=== PATIENT | male | born 1935 | race Caucasian/White ===

== ENCOUNTER 2022-06-28 07:31 | Emergency (ER) | payer MEDICARE, BC, SELFPAY ==
[2022-06-28 07:31] VITALS: BP 121/57; PULSE 97; RESP 17; TEMP 36.8; O2SAT 96; BMI 26.4
--- NOTE | 2022-06-28 07:36 | XR_ITS ---
WS: [id number] PORTABLE CHEST HISTORY: chest pain COMPARISON: None available. Dual lead LEFT subclavian pacer/defibrillator. Prior CABG. Mild elevation of the RIGHT diaphragm. There is very mild interstitial thickening throughout both raf gs. No nodule or pneumonia. No pleural effusion or pneumothorax. Cardiac size: Normal. Mediastinum/Aorta: Mild atherosclerosis aorta. No osseous abnormality seen. XR/XR chest 1V portable [id number] IMPRESSION: 1. Mild atherosclerosis aorta. 2. Mild interstitial thickening. May be chronic or due to mild fluid overload. No pneumonia.
--- NOTE | 2022-06-28 07:36 | ECG_ITS ---
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 Measurements Intervals [place] Rate: 81 P: 128 TN: 166 QRS: -65 QRSD: 179 T: 115 QT: 387 QTc: 450 Interpretive Statements ELECTRONIC ATRIAL PACEMAKER ELECTRONIC VENTRICULAR PACEMAKER Frequent PVC's No previous ECG available for comparison Electronically Signed On 06-28-2022 16:34:17 CDT by Salina Hernandez M.D. [id number]
--- NOTE | 2022-06-28 07:42 | W.ED.CHESTPA ---
HPI - Chest Pain General: Chief Complaint: Chest Pain Stated Complaint: CHEST PAIN Time Seen by Provider: 06/28/22 07:36 Source: patient Mode of arrival: ambulatory Limitations: no limitations History of Present Illness: 86-year-old male presents emergency room complaining of chest discomfort shortness of breath and bradycardia that began around 2 AM this morning. Patient has AICD. He was told he is due for replacement in September. This morning is not feeling well and thought he was bradycardic called EMS EMS verbally reported a heart rate of 40s but they have no tracing of it. All the tracings they provided show 100% paced 70 and 80s ranges which consistent with what we are seeing when he arrives here. He was given aspirin and nitro in route and is currently symptom-free. MD complaint: chest discomfort Onset (ago): hour(s) Timing of current episode: episodic Onset: during rest Pain location: substernal Pain radiation: none Severity: mild Quality: aching and heaviness Relieving factors: nothing Exacerbating factors: nothing Associated symptoms: Deny abdominal pain, dyspnea, fever(s), nausea or vomiting Review of Systems Const: Denies: fever(s), chills, body aches, change in appetite, fatigue or malaise ENMT: Denies: throat pain, ear or mastoid pain, nasal discharge or nasal congestion Card: Denies: chest pain, edema, dyspnea on exertion or orthopnea Resp: Denies: dyspnea, productive cough or non-productive cough GI: Denies: abdominal pain, nausea, vomiting, hematemesis, coffee ground emesis, diarrhea, constipation, bloating, hematochezia or melena : Denies: flank pain, difficulty urinating, dysuria, urinary frequency or urinary urgency Skin/Breast: Denies: rash or pruritus PFS ED PFSH: Medical History Hypertension Ischemic cardiomyopathy Surgical History H/O mitral valve replacement with mechanical valve Social History Smoking and tobacco status: never smoked Alcohol intake: never Physical Exam Const: GENERAL APPEARANCE: cooperative and comfortable ORIENTATION/CONSCIOUSNESS: Yes awake, Yes oriented to person, Yes oriented to place and Yes oriented to time HENMT: COMMON NORMALS: normocephalic, atraumatic and hearing grossly normal bilaterally HEAD & SCALP: normocephalic and atraumatic Resp: COMMON NORMALS: normal respiratory effort, No retractions, No use of accessory muscles and clear to auscultation bilaterally AUSCULTATION: clear to auscultation bilaterally Cardio: COMMON NORMALS: regular rate, regular rhythm and No murmurs present (Cardio) RATE: regular rate RHYTHM: regular rhythm GI: COMMON NORMALS: Soft to palpation and No hepatosplenomegaly present AUSCULTATION: Yes normoactive bowel sounds PALPATION: Yes Soft to palpation, No Tenderness to palpation present (GI), No Guarding due to palpation present (GI) and Yes No hepatosplenomegaly present Extremity: COMMON NORMALS: normal to inspection, capillary refill normal, no clubbing, cyanosis or edema, no calf tenderness and no pedal edema Neuro: SENSORIUM/ORIENTATION: Yes oriented to person, Yes oriented to place and Yes oriented to time Skin: COMMON NORMALS: no rashes or lesions noted GENERAL SKIN EXAM: no rashes or lesions noted Course Vital Signs: Vital signs: Vital Signs Temperature 98.2 F 06/28/22 07:31 Pulse Rate 74 06/28/22 12:34 Respiratory Rate 14 06/28/22 12:34 Blood Pressure 132/76 06/28/22 12:34 Pulse Oximetry 98 06/28/22 12:34 Oxygen Delivery Me thod 06/28/22 08:35 MDM - Chest Pain Medical Decision Making Labs imaging EKG and history reviewed. We will discharge patient home monitored for time in the emergency room had complete capture and was doing well troponins normal. We will discharge patient home on Holter monitor continue to evaluate and follow-up with cardiology within the coming week return if is further problems. Medical Records I reviewed the patient's medical records. Lab Data I reviewed the patient's lab results. : 06/28/22 08:23 06/28/22 08:23 Radiology Impressions Chest X-Ray 06/28/22 07:36 IMPRESSION: 1. Mild atherosclerosis aorta. 2. Mild interstitial thickening. May be chronic or due to mild fluid overload. No pneumonia. Laboratory Results WBC 6.6 10^3/uL (4.0-10.0) 06/28/22 08:23 RBC 3.96 10^6/uL (4.1-5.3) L 06/28/22 08:23 Hgb 10.1 g/dL (11.7-16.6) L 06/28/22 08:23 Hct 33.3 % (42.0-52.0) L 06/28/22 08:23 MCV 84.1 fl (80-94) 06/28/22 08: MCH 25.5 pg (28.0-34.0) L 06/28/22 08: MCHC 30.3 g/dL (30.0-36.0) 06/28/22 08: RDW 18.0 % (12.1-15.1) H 06/28/22 08:23 Plt Count 158 10^3/cmm (130-400) 06/28/22 08:23 MPV 13.0 fL (7.4-10.4) H 06/28/22 08:23 Neut % (Auto) 67.0 % 06/28/22 08: Lymph % (Auto) 15.2 % 06/28/22 08:23 [place] % (Auto) 10.0 % 06/28/22 08:23 Eos % (Auto) 6.4 % 06/28/22 08: Baso % (Auto) 0.9 % 06/28/22 08: Neut # (Auto) 4.43 10^3/uL (1.8-7.7) 06/28/22 08:23 Lymph # (Auto) 1.0 10^3/uL (0.8-4.8) 06/28/22 08:23 [place] # (Auto) 0.7 10^3/uL (0.2-0.9) 06/28/22 08:23 Eos # (Auto) 0.4 10^3/uL (0.0-0.8) 06/28/22 08:23 Baso # (Auto) 0.1 10^3/uL (0.0-0.1) 06/28/22 08:23 Nucleated RBC % (auto) 0 % 06/28/22 08: Nucleated RBCs # 0.0 /100WBC 06/28/22 08: PT 33.80 SECONDS (12.1-14.9) H 06/28/22 08:23 INR 3.29 (0.8-1.2) H 06/28/22 08:23 Sodium 141 mmol/L (136-145) 06/28/22 08:23 Potassium 4.2 mmol/L (3.5-5.1) 06/28/22 08:23 Chloride 103 mmol/L (98-107) 06/28/22 08:23 Carbon Dioxide 29 mmol/L (22-29) 06/28/22 08:23 Anion Gap 13.2 (5-19) 06/28/22 08:23 BUN 12 mg/dL (8-23) 06/28/22 08:23 Creatinine 0.7 mg/dL (0.7-1.2) 06/28/22 08:23 GFR Calculation Not Reportable 06/28/22 08:23 Glucose 105 mg/dL (65-115) 06/28/22 08:23 Calculated Osmolality 292 mOsm/kg (285-295) 06/28/22 08:23 Calcium 9.2 mg/dL (8.5-10.5) 06/28/22 08:23 Total Bilirubin 0.4 mg/dL (0.15-1.2) 06/28/22 08:23 AST 43 U/L (0-40) H 06/28/22 08:23 ALT 41 U/L (0-41) 06/28/22 08:23 Alkaline Phosphatase 65 U/L (40-130) 06/28/22 08:23 Troponin T Baseline 16 ng/L (0-15) H 06/28/22 08:23 Troponin T 120 Minute 15.47 ng/L (0-15) H 06/28/22 10:53 Delta Troponin T -0.53 ABS# (0-10) L 06/28/22 10:53 NT-Pro-B Natriuret Pep 2921 pg/mL (0-450) H 06/28/22 08:23 Total Protein 6.3 g/dL (6.6-8.7) L 06/28/22 08:23 Albumin 4.0 g/dL (3.5-5.2) 06/28/22 08:23 Globulin 2.3 g/dL (1.3-4.6) 06/28/22 08:23 Discharge Plan Discharge Patient Disposition: Home Clinical Impression: Ischemic cardiomyopathy, H/O mitral valve replacement with mechanical valve, Hypertension, Pacemaker Prescriptions: No Action carvedilol 25 mg tablet 25 mg PO BID warfarin 10 mg Tablet See Rx Instructions .ROUTE .COMPLEX Rx Instructions: 10mg po at bedtime on sat,sun,tues and thurs warfarin 7.5 mg tablet See Rx Instructions .ROUTE .COMPLEX Rx Instructions: 7.5 mg po at bedtime on mon,wed, and fri Aspir-81 81 mg Tablet,Delayed Release (Dr/Ec) 81 mg PO QAM Vitamin C 500 mg Tablet 500 mg PO DAILY@12 pantoprazole 40 mg tablet,delayed release (DR/EC) 40 mg PO DAILY@12 simvastatin 20 mg tablet 20 mg PO BEDTIME Stool Softener 100 mg Capsule 100 mg PO BID lisinopril 5 mg tablet 5 mg PO DAILY@12 furosemide 20 mg tablet 20 mg PO QAM Claritin 10 mg Tablet 10 mg PO QAM magnesium oxide 400 mg magnesium Tablet 400 mg PO QAM Discharge Orders: Discharge ED (Routine); Ordered 06/28/22 Ordered By: Mane Barry Discharge Diet: Usual diet Discharge Activity: Limit activity as instructed Patient Instructions: Opioid Safety Activity Restrictions/Additional Instructions: international bank manager will make arrangements for you to have a 48-hour Holter monitor. 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 Coding Level of Care Code ED Rolled Seat Trimmer for Crescencio Fwjarred Exam Detailed
[2022-06-28 08:35] VITALS: BP 121/57; PULSE 84; RESP 18; O2SAT 95
[2022-06-28 08:39] LABS: Basophils # 0.1 10^3/uL (0.0-0.1); Basophils % 0.9 %; Eosinophils # 0.4 10^3/uL (0.0-0.8); Eosinophils % 6.4 %; Hematocrit 33.3 % (42.0-52.0); Hemoglobin 10.1 g/dL (11.7-16.6); Lymphocytes % 15.2 %; Mean Corpuscular HGB Conc 30.3 g/dL (30.0-36.0); Mean Corpuscular Hemoglobin 25.5 pg (28.0-34.0); Mean Corpuscular Volume 84.1 fl (80-94); Monocytes # 0.7 10^3/uL (0.2-0.9); Neutrophils # 4.43 10^3/uL (1.8-7.7); Nucleated Red Blood Cells % 0 %; Platelet Count 158 10^3/cmm (130-400); Red Blood Count 3.96 10^6/uL (4.1-5.3); White Blood Count 6.6 10^3/uL (4.0-10.0)
[2022-06-28 08:48] LABS: INR 3.29 (0.8-1.2)
[2022-06-28 08:57] LABS: Troponin(5th) Baseline 16 ng/L (0-15)
[2022-06-28] MEDS: FUROsemide 10 mg/mL SDV 2mL 20 MG IVP (09:02)
[2022-06-28 09:07] LABS: Alanine Aminotransferase 41 U/L (0-41); Alkaline Phosphatase 65 U/L (40-130); Anion Gap 13.2 (5-19); Aspartate Amino Transferase 43 U/L (0-40); Blood Urea Nitrogen 12 mg/dL (8-23); Calcium 9.2 mg/dL (8.5-10.5); Carbon Dioxide 29 mmol/L (22-29); Chloride 103 mmol/L (98-107); Globulin 2.3 g/dL (1.3-4.6); Glucose 105 mg/dL (65-115); NT Pro B Type Natriuretic Pept 2921 pg/mL (0-450); Osmolality Calculated 292 mOsm/kg (285-295); Potassium 4.2 mmol/L (3.5-5.1); Sodium 141 mmol/L (136-145); Total Bilirubin 0.4 mg/dL (0.15-1.2); Total Protein 6.3 g/dL (6.6-8.7)
--- NOTE | 2022-06-28 09:28 | ECG_ITS ---
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 Measurements Intervals [place] Rate: 92 P: 187 AL: 165 QRS: -64 QRSD: 184 T: 111 QT: 392 QTc: 487 Interpretive Statements ELECTRONIC ATRIAL PACEMAKER ELECTRONIC VENTRICULAR PACEMAKER Compared to ECG 06/28/2022 07:54:26 No significant changes Electronically Signed On 06-29-2022 19:55:34 CDT by Judah Pratt M.D. [id number]
[2022-06-28 10:52] VITALS: BP 121/57; PULSE 85; RESP 14; O2SAT 97
[2022-06-28 11:27] LABS: Troponin 5 2HR 15.47 ng/L (0-15)
[2022-06-28 11:28] LABS: Troponin 5 2HR Delta -0.53 ABS# (0-10)
[2022-06-28 11:42] VITALS: BP 132/74
[2022-06-28 12:34] VITALS: BP 132/76; PULSE 74; RESP 14; O2SAT 98
--- NOTE | 2022-06-29 14:40 | DCPLANNER ---
Addendum entered by Lashon Perea 06/29/22 14:48: skating rink manager noticed that patient does not have a primary care physician to send the results to. skating rink manager call [phone] this number is not accepting phone calls. skating rink manager called phone number [phone] this number is no longer in service. skating rink manager unable to reach patient to confirm who patient sees for primary care, manager of case management did not order the halter monitor. Original Note: skating rink manager had message to schedule an outpatient 48 hour halter monitor for patient. skating rink manager faxed signed order to heart care, who will call patient with appointment information.
== END 2022-06-28 12:35 | disposition home or self-care (01) ==
PROVIDERS: Emergency Provider Family Medicine
DX: I25.5 Ischemic cardiomyopathy (principal); Z95.2 Presence of prosthetic heart valve; I10 Essential (primary) hypertension; Z95.0 Presence of cardiac pacemaker; Z79.82 Long term (current) use of aspirin; Z79.01 Long term (current) use of anticoagulants; I70.0 Atherosclerosis of aorta
CPT/HCPCS: 36415; 71045; 80053; 83880; 84484; 85025; 85610; 93005; 96374; 99285; J1940

== ENCOUNTER → 2023-09-04 11:45 | Outpatient (BNVA) | payer OTHER, SELFPAY | PROVIDERS: PCP Family Medicine; Referring Provider Family Medicine; Visit Provider Surgery | DX: K40.90 Unilateral inguinal hernia, without obstruction or gangrene, not specified as recurrent (principal) | CPT/HCPCS: 99204 ==

== ENCOUNTER → 2023-09-27 10:43 | Outpatient (BNVA) | payer MEDICARE, BC, SELFPAY | PROVIDERS: PCP Family Medicine; Visit Provider Family Medicine | DX: Z01.818 Encounter for other preprocedural examination (principal) | CPT/HCPCS: 80053; 85025 ==

== ENCOUNTER 2023-10-04 05:31 | Day surgery (SDC) | payer OTHER, SELFPAY ==
[2023-10-04] VITALS (11 sets, daily range): BP systolic 95–107; BP diastolic 53–63; PULSE 69–76; RESP 14–17; TEMP 36.1–36.2; O2SAT 92–98; BMI 21.2
[2023-10-04] MEDS: sodium chloride 0.9% 1,000 ML 30 ML IV (06:17)
--- NOTE | 2023-10-04 06:42 | P.HPUD_ITS ---
Surgery/Procedure H&P Update DATE OF PROCEDURE: October 04, 2023 DATE H&P PERFORMED: 09/04/23 H&P UPDATE INFORMATION: I have reviewed H&P completed within last 30 days, I have examined patient prior to procedure, No changes to prior documentation and H&P is in [facility] [place] on date indicated PLANNED PROCEDURE: Operation Date: 10/04/23 07:00 Proposed Procedures p [id number] lap possible open left inguinal hernia repair with mesh K40.90(Left) - Eleazar Reveles MD
--- NOTE | 2023-10-04 06:43 | P.ANESASSM_ITS ---
Pre-Anesthetic Assessment Height/Weight: Height 1.8 m Weight 68.946 kg Temp Pulse Resp BP Pulse Ox O2 Del Method 96.9 F L 76 17 95/59 96 Room Air 10/04/23 06:06 10/04/23 06:06 10/04/23 06:06 10/04/23 06:06 10/04/23 06:06 10/04/23 06:06 Operation Date: 10/04/23 07:00 Proposed Procedures p [id number] lap possible open left inguinal hernia repair with mesh K40.90(Left) - Eleazar Reveles MD Familial anesthetic complications: None Was Beta Ansley taken within 24 hours: N/A Was Clonidine taken within 24 hours: N/A Last intake: Intake Last Liquid Date 10/03/23 Last Liquid Time 23:50 Last Solid Date 10/03/23 Last Solid Time 17:00 Social No alcohol and No tobacco Exam alert, oriented x 3, clear to auscultation bilaterally and regular rate & rhythm Airway Mallampati: Class II CV/HEM Hypertension Ischemic cardiomyopathy with w/ mitral valve replacement on lovenox bridge for surgery patient has a pacemaker defibrillator from [employer] - called [employer] device rep and 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 Thus will apply magnet before surgery since surgery is intraabdominal Anesthetic Plan ASA status: 4 Anesthesia: General Risk of > 500 ml blood loss (7ml/kg in children): No Medications/Allergies Home Medications Medication Instructions Recorded Confirmed Last Taken Type ascorbic acid (vitamin C) 500 mg 500 mg PO DAILY@12 06/28/22 10/03/23 10/03/23 History tablet (Vitamin C) aspirin 81 mg tablet,delayed 81 mg PO QAM 06/28/22 10/03/23 09/29/23 History release carvedilol 25 mg tablet 25 mg PO BID 06/28/22 10/04/23 10/04/23 05:00 History docusate sodium 100 mg capsule 100 mg PO BID 06/28/22 10/03/23 10/03/23 History (Stool Softener) furosemide 20 mg tablet 40 mg PO BID 06/28/22 10/04/23 10/03/23 History loratadine 10 mg tablet (Claritin) 10 mg PO QAM 06/28/22 10/03/2310/03/23 His tory magnesium oxide 400 mg PO QAM 06/28/22 10/03/23 10/03/23 History pantoprazole 40 mg tablet,delayed 40 mg PO DAILY@12 06/28/22 10/03/23 10/03/23 History release warfarin 10 mg tablet See Rx Instructions .Route .COMPLEX 06/28/22 10/03/23 09/28/23 History warfarin 7.5 mg tablet See Rx Instructions .Route .COMPLEX 06/28/22 10/03/23 09/28/23 History cholecalciferol (vitamin D3) 10 10 mcg PO DAILY 09/04/23 10/03/23 10/03/23 History mcg (400 unit) capsule citalopram 10 mg tablet 10 mg PO DAILY 09/04/23 10/03/23 10/03/23 History ferrous fumarate 325 mg (106 mg 325 mg PO DAILY 09/04/23 10/03/23 10/03/23 History iron) tablet potassium chloride 10 mEq 10 meq PO ONCE 09/04/23 10/03/23 10/03/23 History tablet,extended release spironolactone 25 mg tablet 25 mg PO DAILY 09/04/23 10/03/23 10/03/23 History gabapentin 100 mg capsule 100 mg PO QID 09/27/23 10/04/23 10/04/23 05:00 History simvastatin 20 mg tablet 40 mg PO BEDTIME 09/27/23 10/03/23 10/03/23 History enoxaparin 80 mg/0.8 mL 80 mg SUBCUT Q12H 10/04/23 10/04/23 10/03/23 18:00 History subcutaneous syringe (Lovenox) Allergies Allergy/AdvReac Type Severity Reaction Status Date / Time Sulfa (Sulfonamide Allergy Intermediate Digestive Verified 10/04/23 06:00 Antibiotics) problems ciprofloxacin Allergy ALGY-Rash Verified 10/04/23 06:00 propoxyphene Allergy ADR-Halluci Verified 10/04/23 06:00 [From Elizabeth] nating Current Medications Generic Name Dose Route Start Last Admin Trade Name Freq PRN Reason Stop Dose Admin Sodium Chloride 1,000 mls @ 30 mls/hr 10/04/23 06:00 10/04/23 06:17 Sodium Chloride 0.9% IV 10/05/23 05:59 30 mls/hr .Q24H SOCORRO Administration PFSH Anesthesia Medical History Hypertension Ischemic cardiomyopathy Surgical History H/O mitral valve replacement with mechanical valve Social History Smoking and tobacco/nicotine status: never used tobacco/nicotine Alcohol intake: never Data Anesthesia Cardiac Studies: No Data to Display
[2023-10-04] MEDS: ceFAZolin 2,000 MG in sodium chloride 0.9% (plus) 50 ML 100 MG IV (07:00)
[2023-10-04] MEDS: lidocaine-epi 1% 20 mL INJ INJECTION (08:13)
[2023-10-04] MEDS: BUPivacaine 0.25% INJ 10 mL INJECTION (08:13)
--- NOTE | 2023-10-04 08:29 | P.OP_ITS ---
Operative Report Date of procedure: October 04, 2023 Pre-op diagnosis: Left inguinal hernia Post-op diagnosis: Left inguinal hernia without indirect And direct component. Post-op findings: There was a left inguinal hernia without indirect and a direct component. Lipoma of the cord noted and reduced. Procedure done: Laparoscopic left inguinal hernia repair with mesh. Implants: Medium size left 3D max mesh Surgeon: Eleazar Reveles MD Steel Pan Form Placing Supervisor: CRUZ OR Staff Estimated blood loss: 5cc Complications: none Brief History: This 87-year-old male who presented to my clinic with a left inguinal hernia, due to multiple medical comorbidities he underwent preoperative testing before proceeding to the OR for a laparoscopic left inguinal hernia repair with mesh. All the risk and benefits were discussed with the patient and the family member as documented in my preop note. Procedure: Patient was brought into the OR. He was placed in the supine position. Patient was intubated. The abdomen was prepped and draped in the usual sterile fashion. Timeout was conducted. 1.5cm infraumbilical incision was made and deepened until the anterior rectus sheath was identified, the anterior rectus sheath was then opened with electrocautery and the rectus muscle was retracted laterally allowing access to the retrorectus space the space was developed with a chest retractor and a balloon trocar was then introduced and guided carefully downwards towards the symphysis of the pubis. The balloon was inflated under direct visualization developed in the preperitoneal space, the balloon was removed and a 12 mm Trocar Was Then Inserted in the Space. Under Direct Visualization Additional 5 Mm Trocars Were Placed in the Suprapubic and Infraumbilical Positions. I Then Proceeded with the Dissection of the Space of Retzius, the Andrez's Ligament Was Bluntly Dissected Bilaterally on the Left Side the Right Inguinal Hernia Was Noted Containing Preperitoneal Fat, the Fat Was Reduced. I Then Proceeded to Dissect the Space of Borgess Laterally with Blunt Dissection after the Space Was Completely Developed by Then Placed My Attention to the Cord Structures Were Indirect Sac Was Also Noted the Indirect Sac Was Reduced and after Careful Dissection Critical View of the Myopectineal Orifice Was Achieved. At This Point I Inserted a Medium Size Left Side 3D Max Mesh and Fixed the Mesh Medially to the Andrez's Ligament with an Absorbable Tacker. The Cavity Was Desufflated under Direct Visualization to Allow the Mesh to Rest in a Flat Position against Abdominal Wall. The Trocars Were Completely Removed from the Abdomen. I Then Placed My Attention to the Infraumbilical Incision I Make a Small Thought in the Posterior Rectus Sheath to Allow for Evacuation of Pneumoperitoneum That Was Noted during the Dissection of the Sac, Pneumoperitoneum Was Completely Evacuated This Posterior Rectus Sheath Incision Was Then Closed with #0 Vicryl in the UR 6 Needle. The Anterior Rectus Sheath Was Closed with a 0 Vicryl in the UR 6 Needle and Then the Wounds Were Closed in Layers Using #3-0 Vicryl for the Subcutaneous Tissue and #4-0 Monocryl for the Skin. Dermabond Was Applied over All Incisions. At the End of the Procedure All Counts Were Correct the Patient Tolerated Well the Procedure Was Extubated and Transferred to the PACU in Stable Condition.
--- NOTE | 2023-10-04 09:50 | ANE.PACU2 ---
Inpatient post-anesthesia follow up: Airway intact: Yes Vital signs: Temperature 97.0 F Pulse Rate 70 Respiratory Rate 16 Blood Pressure 98/53 Pulse Oximetry 93 Oxygen Delivery Me thod Room Air Oxygen Flow Rate 6 Fraction of Inspir ed Oxygen Hydration adequate: Yes Nausea and vomiting: No Pain level: 1 Mental status: Baseline
== END 2023-10-04 09:51 | disposition home or self-care (01) ==
PROVIDERS: PCP Family Medicine; Visit Provider Surgery
PROC: (CPT 49650; principal; 2023-10-04 07:00)
DX: K40.90 Unilateral inguinal hernia, without obstruction or gangrene, not specified as recurrent (principal); D17.6 Benign lipomatous neoplasm of spermatic cord; I10 Essential (primary) hypertension; I25.5 Ischemic cardiomyopathy; Z95.0 Presence of cardiac pacemaker; Z79.82 Long term (current) use of aspirin
CPT/HCPCS: 49650; 51702; J0690; J1100; J2405; J2704; J2710; J3010; J3490; J7030

== ENCOUNTER 2023-10-07 10:16 | Emergency (ER) | payer OTHER, SELFPAY ==
[2023-10-07] VITALS (13 sets, daily range): BP systolic 72–98; BP diastolic 39–55; PULSE 70–92; RESP 16–19; TEMP 36.3–36.9; O2SAT 91–97
--- NOTE | 2023-10-07 10:18 | ECG_ITS ---
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 Measurements Intervals [place] Rate: 69 P: 187 WV: 162 QRS: -67 QRSD: 176 T: 114 QT: 492 QTc: 530 Interpretive Statements ELECTRONIC ATRIAL PACEMAKER ELECTRONIC VENTRICULAR PACEMAKER ABNORMAL RHYTHM ECG Compared to ECG 06/28/2022 09:28:32 No significant changes Electronically Signed On 10-07-2023 18:44:09 DAIRY FEED WORKER by Gurpreet Mirza M.D. [email or web address] health main [email or web address] [email or web address]/store/[id number]
--- NOTE | 2023-10-07 10:18 | XRR_ITS ---
PROCEDURE INFORMATION: Exam: XR Chest Exam date and time: 10/07/2023 11:31 AM Age: 87 years old Clinical indication: Other: Rib pain; Prior surgery; Surgery date: 6+ months; Surgery type: Heart and pacer; Additional info: Weakness TECHNIQUE: Imaging protocol: Radiologic exam of the chest. Views: 1 view. COMPARISON: CR XR chest 1V portable [id number] 06/28/2022 7:59 AM FINDINGS: Lungs: No focal consolidation. Pleural spaces: No pleural effusion. No pneumothorax. Heart/Mediastinum: Heart size unchanged. Left chest cardiac device. Bones/joints: No acute findings. XR/XR chest 1V portable [id number] IMPRESSION: No acute chest findings.
--- NOTE | 2023-10-07 10:46 | W.ED.GENADLT ---
HPI - General Adult General: Chief complaint: Fall Stated complaint: Fell, weakness, unable to walk Time Seen by Provider: 10/07/23 10:22 History of Present Illness: 87-year-old male presents emergency department with his family member. Family member states that he had a ventral hernia repair 3 days ago here at this facility and was doing well until yesterday. He had a accidental fall because he was dizzy the patient was doing fine after the fall yesterday until today and he fell several times this morning about 2 AM. Patient states that after the fall he started noticing significant bruising to his lower abdomen and he became more weak and pale. The patient does have a history of mechanical valve replacement a number of years ago and is currently taking Lovenox and Coumadin. Patient states he feels increasingly weak and fatigued and appears to be more pale. He states he does have left rib and neck pain from the fall. He denies loss of consciousness. Associated symptoms: Reports malaise and nausea Review of Systems General: Reports: 10 or more systems reviewed and unremarkable except in HPI and below Const: Reports: fatigue and malaise GI: Reports: abdominal pain and nausea Skin/Breast: Reports: surgical incision and other (Ecchymosis to the bilateral lower abdomen) [facility] ED PFSH: Medical History Hypertension Ischemic cardiomyopathy Surgical History H/O mitral valve replacement with mechanical valve Social History Smoking and tobacco/nicotine status: never used tobacco/nicotine Alcohol intake: never Physical Exam Narrative: EXAM NARRATIVE: Constitutional: Pale, frail-appearing, acute distress. Vital signs reviewed as documented. HENMT: Normocephalic, atraumatic. Extermal ears with normal appearance without drainage. Nose without drainage, normal appearance. Mucus membranes moist. Neck is supple, No jugular venous distension, trachea is midline, no appreciable carotid bruits. No lymphadenopathy. No meningeal signs. No palpable step-offs, no crepitus, Flexion, extension and lateral rotation is without pain. Eyes: Pupils are equal, round, reactive to light and accommodation. No scleral icterus. Extra-ocular movement are intact. Thorax is symmetrical and with equal rise and fall with respirations. Resp: Lungs are clear to auscultation. No wheezes, rales, crackles or ronchi at present. Cardio: Paced cardiac rhythm at 80 bpm. Positive S1, S2. 4/5 murmur mechanical valve auscultated GI: Abdominal exam reveals normal bowel sounds to all quadrants. No organomegaly. Soft, tender to palpation, obvious bruising and ecchymosis to the bilateral lower quadrants of the abdomen. Surgical incision midline noted is well-approximated with no active drainage or sign of infection. Extremity: Extremities are non-edematous and both femoral and pedal pulses are 2+ and equal bilaterally. Moves all extremities well, sensation in all extremities. Neuro: Alert and oriented x4, person, place, time and situation. Cranial nerves II through XII are grossly intact, there is no focal neurological deficits that I can appreciate at present. Motor strength in the upper and lower extremities are equal and bilateral 5/5. Psych: Cooperative, calm, normal thought process, appropriate judgment. Skin: No lesions, rashes. Significant bilateral lower abdominal quadrant ecchymosis, pale appearing Back: Symmetrical, no obvious deformity, No CVA tenderness Course ED course: I consulted the hospital medicine service to discuss the patient's presentation as well as his continued hypotension. I also contacted the patient's general surgeon who performed the procedure on 10/04/2023 and advised him of the CT scan findings which were concerning for intra abdominal hemorrhage. Both the hospitalist Dr. Ames and the general surgeon requested transfer the patient I did contact the transfer center for [facility] in [facility] and spoke with the ER physician we will go ER to ER emergent transfer. Patient has received 2 units of packed red blood cells as well as 2 units of FFP. He will be emergently transferred for potential interventional radiology with thrombosis of his active vascular bleeding Vital Signs: Vital signs: Vital Signs Temperature 97.4 F L 10/07/23 17:06 Pulse Rate 87 10/07/23 17:06 Respiratory Rate 19 H 10/07/23 15:21 Blood Pressure 93/46 10/07/23 17:06 Pulse Oximetry 97 10/07/23 17:06 Oxygen Delivery Me thod Room Air 10/07/23 16:19 MDM - General Adult Medical Decision Making Physical exam completed and documented, I will obtain a CBC, CMP PT PTT INR cardiac enzymes twelve-lead EKG as well as influenza and COVID-19. Will obtain a chest x-ray as well as a CT abdomen pelvis with IV contrast. I will provide IV fluid rehydration. Differential diagnosis includes infectious illness, postoperative bleeding, post fall hemorrhage, dehydration, acute kidney injury, Differential Diagnosis Postoperative bleeding, infection Medical Records I reviewed the patient's medical records. Lab Data I reviewed the patient's lab results. 10/07/23 16:48 10/07/23 11:11 Radiology Impressions Abdomen/Pelvis CT 10/07/23 12:20 IMPRESSION: Large intra-abdominal hemorrhage with a few scattered focal hyperdensities which cannot be excluded as active extravasation. The findings were verbally communicated via telephone conference with LENIN CHI at 4:39 PM SEWER PIPE SORTER on 10/07/2023. The findings were acknowledged and understood. Chest X-Ray 10/07/23 14:01 IMPRESSION: As above. Laboratory Results WBC 12.30 10^3/uL (3.29-11.43) H 10/07/23 16:48 RBC 2.62 10^6/uL (3.85-5.65) L 10/07/23 16:48 Hgb 7.60 g/dL (11.27-16.99) L 10/07/23 16:48 Hct 24.2 % (37-53) L 10/07/23 16:48 MCV 92.4 fl (82-101) 10/07/23 16:48 MCH 29.0 pg (27-33) 10/07/23 16:48 MCHC 31.4 g/dL (30-55) 10/07/23 16:48 RDW 17.6 % (12.1-15.1) H 10/07/23 16:48 Plt Count 130 10^3/cmm (157-399) L 10/07/23 16:48 MPV 11.3 fL (7.4-10.4) H 10/07/23 16:48 Neut % (Auto) 79.3 % 10/07/23 16:48 Lymph % (Auto) 9.9 % 10/07/23 16:48 [place] % (Auto) 9.6 % 10/07/23 16:48 Eos % (Auto) 0.1 % 10/07/23 16:48 Baso % (Auto) 0.2 % 10/07/23 16:48 Neut # (Auto) 9.75 10^3/uL (1.8-7.7) H 10/07/23 16:48 Lymph # (Auto) 1.2 10^3/uL (0.8-4.8) 10/07/23 16:48 [place] # (Auto) 1.2 10^3/uL (0.2-0.9) H 10/07/23 16:48 Eos # (Auto) 0.0 10^3/uL (0.0-0.8) 10/07/23 16:48 Baso # (Auto) 0.0 10^3/uL (0.0-0.1) 10/07/23 16:48 Nucleated RBC % (auto) 0 % 10/07/23 16:48 Nucleated RBCs # 0.0 /100WBC 10/07/23 16:48 PT 14.60 SECONDS (12.1-14.9) 10/07/23 11:11 INR 1.11 (0.8-1.2) 10/07/23 11:11 Sodium 131 mmol/L (136-145) L 10/07/23 11:11 Potassium 4.9 mmol/L (3.5-5.1) 10/07/23 11:11 Chloride 93 mmol/L (98-107) L 10/07/23 11:11 Carbon Dioxide 25 mmol/L (22-29) 10/07/23 11:11 Anion Gap 17.9 (5-19) 10/07/23 11:11 BUN 22 mg/dL (8-23) 10/07/23 11:11 Creatinine 1.3 mg/dL (0.7-1.2) H 10/07/23 11:11 GFR Calculation Not Reportable 10/07/23 11:11 Glucose 178 mg/dL (65-115) H 10/07/23 11:11 POC Glucose 174 mg/dL (70-110) H 10/07/23 11:20 Calculated Osmolality 280 mOsm/kg (285-295) L 10/07/23 11:11 Lactic Acid 4.1 mmol/L (0.5-2.2) H* 10/07/23 11:11 Lactic Acid (Sepsis) 1.7 mmol/L (0.5-2.2) 10/07/23 15:14 Calcium 9.5 mg/dL (8.5-10.5) 10/07/23 11:11 Total Bilirubin 1.6 mg/dL (0.15-1.2) H 10/07/23 11:11 AST 28 U/L (0-40) 10/07/23 11:11 ALT 19 U/L (0-41) 10/07/23 11:11 Alkaline Phosphatase 91 U/L (40-130) 10/07/23 11:11 Troponin T Baseline 45 ng/L (0-15) H 10/07/23 11:11 Troponin T 120 Minute 30.65 ng/L (0-15) H 10/07/23 13:00 Delta Troponin T -14.35 ABS# (0-10) L 10/07/23 13:00 Troponin T Hi Sens 6Hr 24.70 ng/L (0-15) H 10/07/23 16:48 Troponin T Hi Sens 6Hr Delta -20.30 ng/L (0-12) L 10/07/23 16:48 NT-Pro-B Natriuret Pep 5107 pg/mL (0-450) H 10/07/23 11:11 Total Protein 6.8 g/dL (6.6-8.7) 10/07/23 11:11 Albumin 3.5 g/dL (3.5-5.2) 10/07/23 11:11 Globulin 3.3 g/dL (1.3-4.6) 10/07/23 11:11 Procalcitonin 0.09 ng/mL (0-0.5) 10/07/23 11:11 Urine Color Kylee (Yellow) 10/07/23 13:36 Urine Appearance Sl cloudy (CLEAR) A 10/07/23 13:36 Urine pH 5 (5-7) 10/07/23 13:36 Ur Specific [place] 1.020 (1.005-1.030) 10/07/23 13:36 Urine Protein 1+ (Negative) H 10/07/23 13:36 Urine Glucose (UA) Norm (Normal) 10/07/23 13:36 Urine Ketones Negative (Negative) 10/07/23 13:36 Urine Blood 2+ (Negative) H 10/07/23 13:36 Urine Nitrate Negative (Negative) 10/07/23 13:36 Urine Bilirubin 1+ (Negative) H 10/07/23 13:36 Urine Urobilinogen 1 mg/dL (Negative) H 10/07/23 13:36 Ur Leukocyte Esterase Trace (Negative) H 10/07/23 13:36 Urine RBC 0-4 /hpf (0-2) H 10/07/23 13:36 Urine WBC 5-10 /hpf (0-5) H 10/07/23 13:36 Ur Squamous Epith Cells None /hpf (0-5) 10/07/23 13:36 Amorphous Sediment 1+ /hpf 10/07/23 13:36 Urine Bacteria 1+ /hpf (NONE) H 10/07/23 13:36 Hyaline Casts 15-25 /lpf H 10/07/23 13:36 Urine Mucus 1+ /hpf 10/07/23 13:36 Influenza Type A Ag negative (Negative) 10/07/23 11:19 Influenza Type B Ag negative (Negative) 10/07/23 11:19 SARS-CoV-2 Ag (Rapid) negative (Negative) 10/07/23 11:19 Blood Type O Positive 10/07/23 16:48 Rho(D) Type Rh positive 10/07/23 16:48 Antibody Screen Negative 10/07/23 16:48 Crossmatch See Detail 10/07/23 16:48 All radiology interpretation(s) finalized by discharge EKG Data EKG 1: Interpretation: Twelve-lead EKG obtained at 1128 reviewed at 1130 demonstrates dual paced rhythm at 69 bpm MN interval 162 QRS duration 176 QT 492 QTc 512. Computer generated interpretation: Abdomen/Pelvis CT 10/07/23 12:20 IMPRESSION: Large intra-abdominal hemorrhage with a few scattered focal hyperdensities which cannot be excluded as active extravasation. The findings were verbally communicated via telephone conference with LENIN CHI at 4:39 PM SEWER PIPE SORTER on 10/07/2023. The findings were acknowledged and understood. Chest X-Ray 10/07/23 14:01 IMPRESSION: As above. EKG 2: Interpretation: Repeat EKG at 1450 and reviewed at 1450 demonstrates dual-chamber pacemaker with a ventricular rate of 71, MN interval 160 QRS duration 178 QT 493 QTc 515. Computer generated interpretation: Abdomen/Pelvis CT 10/07/23 12:20 IMPRESSION: Large intra-abdominal hemorrhage with a few scattered focal hyperdensities which cannot be excluded as active extravasation. The findings were verbally communicated via telephone conference with LENIN CHI at 4:39 PM SEWER PIPE SORTER on 10/07/2023. The findings were acknowledged and understood. Chest X-Ray 10/07/23 14:01 IMPRESSION: As above. Critical Care Time Critical Care Time: Critical Care Time: Yes Total Critical Care Time: 100 Attestation: This case had a high probability of a clinically significant, sudden, or life threatening deterioration of this patient's condition which required my full and direct attention, intervention and personal management. Discharge Plan Discharge Patient Disposition: Transfer to ED Clinical Impression: Acute hypotension Postoperative hemorrhage Qualifiers: Surgical complication system/body Area: circulatory system Procedure type: non-circulatory Qualified Code(s): I97.620 - Postprocedural hemorrhage of a circulatory system organ or structure following other procedure Condition: Stable Prescriptions: No Action spironolactone 25 mg tablet 25 mg PO DAILY potassium chloride 10 mEq tablet extended release 10 meq PO DAILY citalopram 10 mg tablet 10 mg PO DAILY cholecalciferol (vitamin D3) 10 mcg (400 unit) capsule 10 mcg PO DAILY ferrous fumarate 325 mg (106 mg iron) tablet 325 mg PO DAILY gabapentin 100 mg capsule 100 mg PO 5XD enoxaparin [Lovenox] 80 mg/0.8 mL Syringe 80 mg SUBCUT Q12H carvedilol 25 mg tablet 25 mg PO BID aspirin 81 mg Tablet,Delayed Release (Dr/Ec) 81 mg PO QAM ascorbic acid (vitamin C) [Vitamin C] 500 mg Tablet 500 mg PO DAILY@12 pantoprazole 40 mg tablet,delayed release (DR/EC) 40 mg PO DAILY@12 docusate sodium [Stool Softener] 100 mg Capsule 100 mg PO BID furosemide 20 mg tablet 40 mg PO BID loratadine [Claritin] 10 mg Tablet 10 mg PO QAM magnesium oxide 400 mg magnesium Tablet 400 mg PO QAM simvastatin 40 mg Tablet 20 mg PO QPM warfarin 4 mg Tablet See Rx Instructions .ROUTE .COMPLEX Rx Instructions: TAKE 4 MG BY MOUTH ON TUES, THURS, SAT AND SUN. AND TAKE 6 MG ON MON, WED, AND FRI. Referrals: Cheryl Cowan MD [Primary Care Provider] - Coding Level of Care Code ED Main Entree Cook And Cashier for [facility]
[2023-10-07] MEDS: sodium chloride 0.9% 1,000 ML 999 ML IV ×3 (11:14→13:02)
[2023-10-07 11:18] LABS: Basophils # 0.1 10^3/uL (0.0-0.1); Basophils % 0.5 %; Eosinophils # 0.1 10^3/uL (0.0-0.8); Eosinophils % 0.9 %; Hematocrit 32.6 % (37-53); Lymphocytes # 1.8 10^3/uL (0.8-4.8); Lymphocytes % 16.6 %; Mean Corpuscular HGB Conc 31.6 g/dL (30-55); Mean Corpuscular Hemoglobin 28.5 pg (27-33); Mean Corpuscular Volume 90.1 fl (82-101); Mean Platelet Volume 10.8 fL (7.4-10.4); Monocytes # 1.2 10^3/uL (0.2-0.9); Monocytes % 11.3 %; Neutrophils # 7.61 10^3/uL (1.8-7.7); Neutrophils % 69.6 %; Nucleated Red Blood Cells % 0 %; Platelet Count 141 10^3/cmm (157-399); Red Blood Count 3.62 10^6/uL (3.85-5.65); Red Cell Distribution Width 17.4 % (12.1-15.1); White Blood Count 10.92 10^3/uL (3.29-11.43)
[2023-10-07 11:23] LABS: Glucose Point of Care 174 mg/dL (70-110)
[2023-10-07 11:46] LABS: INR 1.11 (0.8-1.2)
[2023-10-07 11:56] LABS: Lactic Sepsis W/Reflex 4.1 mmol/L (0.5-2.2)
[2023-10-07 12:01] LABS: Influenza A by IFA negative (Negative); Influenza B by IFA negative (Negative)
[2023-10-07 12:08] LABS: NT Pro B Type Natriuretic Pept 5107 pg/mL (0-450); Procalcitonin 0.09 ng/mL (0-0.5)
[2023-10-07 12:19] LABS: Alanine Aminotransferase 19 U/L (0-41); Albumin Level 3.5 g/dL (3.5-5.2); Alkaline Phosphatase 91 U/L (40-130); Anion Gap 17.9 (5-19); Aspartate Amino Transferase 28 U/L (0-40); Blood Urea Nitrogen 22 mg/dL (8-23); Calcium 9.5 mg/dL (8.5-10.5); Carbon Dioxide 25 mmol/L (22-29); Chloride 93 mmol/L (98-107); Globulin 3.3 g/dL (1.3-4.6); Glucose 178 mg/dL (65-115); Osmolality Calculated 280 mOsm/kg (285-295); Potassium 4.9 mmol/L (3.5-5.1); Sodium 131 mmol/L (136-145); Total Bilirubin 1.6 mg/dL (0.15-1.2); Total Protein 6.8 g/dL (6.6-8.7)
--- NOTE | 2023-10-07 12:20 | CTR_ITS ---
PROCEDURE INFORMATION: Exam: CT Abdomen And Pelvis With Contrast Exam date and time: 10/07/2023 3:57 PM Age: 87 years old Clinical indication: Abdominal pain; Generalized; Prior surgery; Surgery date: 3-7 days post-operative; Surgery type: Hernia surgery on mon. Heart and pacer; Additional info: Abd pain TECHNIQUE: Imaging protocol: Computed tomography of the abdomen and pelvis with contrast. Radiation optimization: All CT scans at this facility use at least one of these dose optimization techniques: automated exposure control; mA and/or kV adjustment per patient size (includes targeted exams where dose is matched to clinical indication); or iterative reconstruction. Contrast material: OMNI 350; Contrast volume: 80 ml; Contrast route: INTRAVENOUS (IV); REPORTING DATA: Count of CT and Cardiac NM exams in prior 12 months: This patient has received 0 known CTs and 0 known cardiac nuclear medicine studies in the 12 months prior to the current study. COMPARISON: CR (CHEST, ) 10/07/2023 2:02 PM RADIATION DOSE METRICS: Total DLP (mGy-cm): 697.12 FINDINGS: Liver: Perihepatic fluid. Gallbladder and bile ducts: No calcified stones. No ductal dilation. Pancreas: No ductal dilation. Spleen: Perisplenic fluid. Adrenal glands: No mass. Kidneys and ureters: No hydronephrosis. Stomach and bowel: No obstruction. Appendix: No evidence of appendicitis. Intraperitoneal space: Postoperative hemorrhage involving the rectus abdominis, mesentery and extending into the left paracolic gutter into the pelvis. A few scattered more hyperdense foci within the hemorrhage may represent more acute bleed such as on axial image 79. Trace pneumoperitoneum not unexpected in the immediate postoperative period. Vasculature: No abdominal aortic aneurysm. Lymph nodes: No enlarged lymph nodes. Urinary bladder: Displaced by adjacent hemorrhage. Reproductive: Unremarkable as visualized. Bones/joints: Degenerative changes without acute findings. Soft tissues: Postoperative changes from recent ventral abdominal hernia repair. Fluid, potentially hemorrhage extending into the left inguinal hernia sac. CT/CT abdomen pelvis w con* [id number] IMPRESSION: Large intra-abdominal hemorrhage with a few scattered focal hyperdensities which cannot be excluded as active extravasation. The findings were verbally communicated via telephone conference with LENIN CHI at 4:39 PM DISH CLOTH INSPECTOR on 10/07/2023. The findings were acknowledged and understood.
[2023-10-07 12:26] LABS: SARS Covid-2 Antigen negative (Negative)
[2023-10-07] MEDS: piperacillin-tazobactam 3.375 GM in sodium chloride 0.9% (plus) 50 ML IV (12:37)
[2023-10-07] MEDS: norepinephrine 4 MG/250 ML BAG 7.5 MG IV (12:57)
[2023-10-07 13:03] LABS: Reflex Lactate Order REFLEX LACTIC ORDERD
[2023-10-07 13:09] LABS: Troponin(5th) Baseline 45 ng/L (0-15)
[2023-10-07 13:52] LABS: Troponin 5 2HR 30.65 ng/L (0-15)
--- NOTE | 2023-10-07 14:01 | XRR_ITS ---
PROCEDURE INFORMATION: Exam: XR Chest Exam date and time: 10/07/2023 2:02 PM Age: 87 years old Clinical indication: Other vascular access device placement or adjustment; Central line, non-tunnelled; Patient HX: Central line placement TECHNIQUE: Imaging protocol: Radiologic exam of the chest. Views: 1 view. COMPARISON: CR (CHEST, ) 10/07/2023 11:31 AM FINDINGS: Right-sided central line tip projects over the mid SVC. A 2nd image demonstrates the central line tip coiled at the confluence of the jugular and subclavian veins. XR/XR chest 1V portable [id number] IMPRESSION: As above.
[2023-10-07 14:03] LABS: Troponin 5 2HR Delta -14.35 ABS# (0-10)
--- NOTE | 2023-10-07 14:44 | ECG_ITS ---
[facility] Test Date: 2023-10-07 Pat Name: Acosta Resendez Department: Room: Gender: Male Human Resources Services Specialist: : [id number] Requested By: Osmani Darby Order Number: [id number] Latrice MD: Gurpreet Mirza M.D. Measurements Intervals [place] Rate: 71 P: 141 MO: 160 QRS: -68 QRSD: 178 T: 112 QT: 493 QTc: 536 Interpretive Statements ELECTRONIC ATRIAL PACEMAKER ELECTRONIC VENTRICULAR PACEMAKER ABNORMAL RHYTHM ECG Compared to ECG 10/07/2023 11:28:12 No significant changes Electronically Signed On 10-07-2023 19:01:04 MERCHANDISE PRESENTATION MANAGER by Gurpreet Mirza M.D. [email or web address]
[2023-10-07 15:22] LABS: Glucose Urine UA Norm (Normal); Ketones Urine Negative (Negative); Protein Urine 1+ (Negative); Urine Color Amber (Yellow); pH Urine 5 (5-7)
[2023-10-07 15:23] LABS: Add Urine Microscopic? YES; Bilirubin Urine 1+ (Negative); Blood Urine 2+ (Negative); Leukocyte Esterase Urine Trace (Negative); Nitrate Urine Negative (Negative); RBC Urine 0-4 /hpf (0-2); Urobilinogen Urine 1 mg/dL (Negative)
[2023-10-07 15:24] LABS: Add Urine Culture? No; Amorphous Sediment Urine 1+ /hpf; Bacteria Urine 1+ /hpf; Hyaline Casts Urine 15-25 /lpf; Mucus Urine 1+ /hpf
--- NOTE | 2023-10-07 15:24 | PC.NURSE ---
Levophed increased in 2mcg increments per protocol, per ED physician. pt currently on 8mcg/min.
[2023-10-07] MEDS: iohexol 350 mg/mL 500 mL Btl (per mL) IV (16:04)
[2023-10-07 16:25] LABS: Lactic Acid level (Lactate) 1.7 mmol/L (0.5-2.2)
[2023-10-07 17:03] LABS: Basophils % 0.2 %; Eosinophils % 0.1 %; Hematocrit 24.2 % (37-53); Lymphocytes # 1.2 10^3/uL (0.8-4.8); Lymphocytes % 9.9 %; Mean Corpuscular HGB Conc 31.4 g/dL (30-55); Mean Corpuscular Volume 92.4 fl (82-101); Mean Platelet Volume 11.3 fL (7.4-10.4); Monocytes # 1.2 10^3/uL (0.2-0.9); Monocytes % 9.6 %; Neutrophils # 9.75 10^3/uL (1.8-7.7); Neutrophils % 79.3 %; Nucleated Red Blood Cells % 0 %; Platelet Count 130 10^3/cmm (157-399); Red Blood Count 2.62 10^6/uL (3.85-5.65); Red Cell Distribution Width 17.6 % (12.1-15.1)
--- NOTE | 2023-10-07 17:38 | PC.NURSE ---
EMERGENT BLOOD RELEASE PER DR CHI. STARTED INFUSION BOLUS AT 1652, 2 UNITS OF O NEG PACKED RBCs. VITALS DOCUMENTED EVERY 5 MIN. PT STABLE THROUGH THE ENTIRETY OF INFUSIONS. 2 UNITS RBCs INFUSED AND FFP STARTED AT 1732, FFP CONTINUED EN ROUTE. SECOND NURSE (SAMEER SHANNON) VERIFIED ALL BLOOD PRODUCTS PRIOR TO ADMIN. LEVOPHED CONTINUED IN ROUTE WELL.
== END 2023-10-07 17:49 ==
PROVIDERS: Emergency Medicine; Emergency Provider Internal Medicine; PCP Family Medicine
DX: I97.620 Postprocedural hemorrhage of a circulatory system organ or structure following other procedure (principal); I95.9 Hypotension, unspecified; Z79.82 Long term (current) use of aspirin; Z79.01 Long term (current) use of anticoagulants; I25.5 Ischemic cardiomyopathy; I10 Essential (primary) hypertension; Z11.52 Encounter for screening for COVID-19
CPT/HCPCS: 36415; 36416; 36430; 71045; 74177; 80053; 81001; 82962; 83605; 83880; 84145; 84484; 85025; 85610; 86850; 86900; 86920; 86927; 87040; 87426; 87804; 93005; 96365; 96366; 96375; 99285; C1751; J2543; J7030; P9016; P9017; Q9967

== ENCOUNTER → 2023-10-30 12:26 | Outpatient (BNVA) | payer OTHER, SELFPAY | PROVIDERS: PCP Family Medicine; Visit Provider Dermatology | DX: D48.5 Neoplasm of uncertain behavior of skin (principal); L57.0 Actinic keratosis; L82.1 Other seborrheic keratosis; L57.8 Other skin changes due to chronic exposure to nonionizing radiation; L81.4 Other melanin hyperpigmentation; D69.2 Other nonthrombocytopenic purpura; Z85.828 Personal history of other malignant neoplasm of skin | CPT/HCPCS: 11102; 17004; 69100; 99203 ==

== ENCOUNTER → 2023-11-27 08:03 | Outpatient (BNVA) | payer OTHER, SELFPAY | PROVIDERS: PCP Family Medicine; Visit Provider Dermatology | DX: C44.329 Squamous cell carcinoma of skin of other parts of face (principal); C44.212 Basal cell carcinoma of skin of right ear and external auricular canal; L57.0 Actinic keratosis | CPT/HCPCS: 14040; 17000; 17311 ==

== ENCOUNTER → 2023-12-06 14:02 | Outpatient (BNVA) | payer OTHER, SELFPAY | PROVIDERS: PCP Family Medicine; Visit Provider Dermatology | DX: Z48.817 Encounter for surgical aftercare following surgery on the skin and subcutaneous tissue (principal); Z85.828 Personal history of other malignant neoplasm of skin; Z48.02 Encounter for removal of sutures; L57.0 Actinic keratosis; L82.1 Other seborrheic keratosis; L57.8 Other skin changes due to chronic exposure to nonionizing radiation | CPT/HCPCS: 17000; 99213 ==

== ENCOUNTER → 2023-12-26 14:17 | Outpatient (BNVA) | payer OTHER, SELFPAY | PROVIDERS: PCP Family Medicine; Visit Provider Dermatology | DX: L57.0 Actinic keratosis (principal); D69.2 Other nonthrombocytopenic purpura; L57.8 Other skin changes due to chronic exposure to nonionizing radiation; Z85.828 Personal history of other malignant neoplasm of skin; Z48.817 Encounter for surgical aftercare following surgery on the skin and subcutaneous tissue | CPT/HCPCS: 17000; 99213 ==

== ENCOUNTER → 2024-05-28 12:57 | Outpatient (BNVA) | payer OTHER, SELFPAY | PROVIDERS: PCP Family Medicine; Visit Provider Dermatology | DX: D48.5 Neoplasm of uncertain behavior of skin (principal); L57.0 Actinic keratosis; L82.1 Other seborrheic keratosis; D69.2 Other nonthrombocytopenic purpura; Z85.828 Personal history of other malignant neoplasm of skin | CPT/HCPCS: 11102; 17004; 99213 ==

== ENCOUNTER → 2024-06-13 08:16 | Outpatient (BNVA) | payer OTHER, SELFPAY | PROVIDERS: PCP Family Medicine; Visit Provider Dermatology | DX: C44.529 Squamous cell carcinoma of skin of other part of trunk (principal); C44.519 Basal cell carcinoma of skin of other part of trunk; C44.42 Squamous cell carcinoma of skin of scalp and neck | CPT/HCPCS: 11603; 13101; 17313; 99214 ==

== ENCOUNTER → 2024-06-26 09:06 | Outpatient (BNVA) | payer OTHER, SELFPAY | PROVIDERS: PCP Family Medicine; Visit Provider Dermatology | DX: L57.0 Actinic keratosis (principal) | CPT/HCPCS: 17000 ==

== ENCOUNTER → 2024-09-12 13:23 | Outpatient (BNVA) | payer OTHER, SELFPAY | PROVIDERS: PCP Family Medicine; Visit Provider Dermatology | DX: L82.1 Other seborrheic keratosis (principal); D18.01 Hemangioma of skin and subcutaneous tissue; D69.2 Other nonthrombocytopenic purpura; Z85.828 Personal history of other malignant neoplasm of skin; Z57.0 Occupational exposure to noise | CPT/HCPCS: 17004; 99213 ==